=== PATIENT | female | born 1950 | race Two or more races ===

== ENCOUNTER → 2021-02-06 | Outpatient (CLI) | payer MEDICARE ==
[~2021-02-06] MED LIST: LIDOCAINE 2%/EPI 1:100,000 20 ML VIAL. INJ ONE; LIDOCAINE WITH 8.4% SOD BICARB 3 ML DISP.SYRIN. INJ ONE; LIDOCAINE WITH 8.4% SOD BICARB 3 ML DISP.SYRIN. ONE
--- NOTE | 2021-02-06 11:47 | RAD ---
ADDENDUM #1 Addendum: The pathology findings corresponding with the left breast biopsy demonstrate a fibroadenoma with associated calcifications and foci of stromal fibrosis, mild duct ectasia and arterial calcific ation. There is no evidence of atypia or malignancy. The [facility] [place] [facility] [place] BI-RADS Category 2: Benign finding(s). Electronically signed by: Antonietta Calvo MD (02/12/2021 10:31 AM) [id number] ORIGINAL REPORT EXAM: Stereotactic left breast biopsy; specimen radiograph; post-biopsy clip placement; unilateral po st-biopsy mammogram. HISTORY: 70-year-old female presents for stereotactic biopsy of clustered marked calcifications withi n the posterior 3:00 position of the left breast demonstrated on a study performed at an outside faci lity. TECHNIQUE AND FINDINGS: The procedure and its risks and benefits were discussed with the patient. Ris ks discussed included, but were not limited to, pain, infection, bleeding and need for repeat biopsy. The patient provided verbal and written consent. A timeout was performed. The patient was placed in a prone position of the stereotacic table and the left breast was placed in craniocaudal compression. Images were obtained and the calcifications of concern were localized usin g stereotaxis. The skin overlying this region was then sterilely prepped and infiltrated with a few c c 1% lidocaine for local anesthesia. Deeper soft tissue anesthesia was administered with epinephrine in 1% lidocaine. A small skin incision was made and the biopsy device was advanced and appropriate po sitioning was confirmed with additional images. Subsequently, multiple core biopsy samples were obtained with vacuum assistance. A specimen radiograp h of the specimen was obtained. No calcifications were identified. The patient was repositioned in la teral medial compression and additional stereotactic images were obtained. Using the same technique, the calcifications of concern were targeted in this projection and multiple core samples were obtaine d. A specimen radiograph demonstrates inclusion of the calcific lesion of interest. Then, a post-biospy clip was advanced to the site of biopsy using the same guidance technique. Manual compression was maintained until hemostasis achieved. Sterile bandages were placed a post biopsy so mogram was obtained. The post-biopsy mammogram demonstrates immediate post-biospy changes including a small hematoma withi n the biopsy bed and a biopsy clip in expected position. The patient tolerated the procedure without difficulty and was discharged to home in stable condition with post-biospy care instructions. IMPRESSION: Successful stereotactic biopsy of clustered marked calcification within the posterior 3:0 0 position of the left breast and post-biopsy clip placement. An addendum to this report will be subm itted when pathology results are available. Electronically signed by: Antonietta Calvo MD (02/06/2021 11:44 AM) [id number]
--- NOTE | 2021-02-08 17:11 | PATHOLOGY ---
[facility] Accession Number: [id number] . 01 Material submitted: . PART A: breast - LEFT BREAST MICROCALCIFICATIONS. Modifiers: left PART B: breast - BREAST TISSUE CALCS IN GRID . 01 Clinical history: . A: LEFT BREAST CALCIFICATIONS A: OUT 0845 IN 0908 B: LEFT BREAST CALCS B: OUT 1100 IN 1148 . 02 Diagnosis: A. Breast tissue, left breast tissue needle biopsy #1: - Fatty breast tissue showing few small foci of stromal fibrosis and mild duct ectasia. - Rare microcalcification identified. . B. Breast tissue, left breast tissue needle biopsy #2: - Ancient fibroadenoma, measuring 5 mm, with associated calcifications. - Fatty breast tissue showing small foci of stromal fibrosis and focal arterial calcification. . (JPM:mm; 02/08/2021) [facility] 02/08/2021 1641 Local . 02 Comment: There is no atypia or evidence of malignancy. . (JPM:mml; 02/08/2021) . 02 Electronically signed: . Juan Norris MD, Pathologist NPI- [id number] . 01 Gross description: . A. The specimen is received in formalin, labeled "Latrice Hamm, left breast #1 ". Received are multiple needle cores of fibrofatty tissue measuring 2.5 x 2.3 x 0.7 cm in aggregate dimensions. The specimen is submitted entirely in cassettes A1 through A3. The cold ischemic time is 23 minutes. The total formalin fixation time is 36 hours and 42 minutes. . B. The specimen is received in formalin, labeled "Latrice Hamm, breast tissue #2". The specimen is additionally labeled on the requisition as, "left breast calcifications". Received are multiple needle cores of fibrofatty tissue measuring 3.0 x 2.7 x 0.8 cm in aggregate dimensions. The specimen is submitted entirely in cassettes B1 through B5. The cold ischemic time is 10 minutes. The total formalin fixation time is 31 hours and 40 minutes. (CAA; 02/07/2021) QAC/QAC 02/07/2021 1335 Local . 02 Pathologist provided ICD-10: N60.32, N60.42, D24.2 . 02 CPT . 384902, [id number] Specimen Comment: A courtesy copy of this report has been sent to [phone] Specimen Comment: Report sent to Performed at: 01 [facility] [address], [place] [id number] MD Gurpreet Pratt MD Phone: [phone] Performed at: 02 [facility] [address] [place], [place] [id number] MD Juan Norris MD Phone: [phone]
== END | disposition home or self-care (01) ==
LOC: MAMMO 09:34
PROVIDERS: ATTEND Surgery
DX: R92.1 Mammographic calcification found on diagnostic imaging of breast (principal); R92.8 Other abnormal and inconclusive findings on diagnostic imaging of breast; N60.32 Fibrosclerosis of left breast; N60.42 Mammary duct ectasia of left breast; D24.2 Benign neoplasm of left breast
CPT/HCPCS: 19081; 77065; 88305; J3490